=== PATIENT | female | born 1985 | race Caucasian/White ===

== ENCOUNTER 2024-06-06 10:23 | Outpatient (CLI) | payer OTHER ==
[2024-06-06 12:50] LABS: #Basophils 0.04 10x3/uL (0.0-0.2); %Basophils 0.5 % (0.0-1.0); %Eosinophils 1.7 % (0.0-10.0); %Lymphocytes 24.3 % (21.0-51.0); %Monocytes 7.4 % (0.0-10.0); %Neutrophils 65.5 % (42.0-75.0); Hematocrit 36.9 % (36.0-47.0); Hemoglobin 12.6 g/dL (12.0-16.0); Mean Corpuscular HGB CONC 34.1 g/dL (32.0-36.0); Mean Corpuscular Hemoglobin 30.1 pg (27.0-31.0); Mean Corpuscular Volume 88.3 fL (78.0-98.0); Mean Platelet Volume 9.2 fL (7.4-10.4); Platelet Count 186 10x3/uL (130-400); RBC Distribution Width 14.5 % (11.5-14.5); Red Blood Cell (RBC) Count 4.18 mill/uL (4.20-5.40)
[2024-06-06 13:17] LABS: Hemoglobin A1c 4.3 % (4.0-6.0)
[2024-06-06 13:21] LABS: ALT (SGPT) 42 U/L (8-55); AST (SGOT) 29 U/L (5-34); Alkaline Phosphatase 64 U/L (40-110); Anion Gap 11 mmol/L (10-20); BUN (Urea Nitrogen) 18 mg/dL (7.0-18.7); Bilirubin, Total 0.7 mg/dL (0.2-1.2); Calc. Creatinine Clearance 0 mL/min (70-130); Calcium 9.7 mg/dL (7.8-10.44); Carbon Dioxide 25 mmol/L (22-29); Chloride 107 mmol/L (98-107); Estimated GFR 83; Globulin 3.3 g/dL (2.4-3.5); Glucose 65 mg/dL (70-105); Potassium 4.1 mmol/L (3.5-5.1); Protein, Total 7.3 g/dL (6.0-8.3); Sodium 139 mmol/L (136-145)
== END 2024-06-06 10:24 | disposition home or self-care (01) ==
LOC: LABBT 10:23
PROVIDERS: ATTEND Surgery
DX: Z01.818 Encounter for other preprocedural examination (principal); E66.01 Morbid (severe) obesity due to excess calories
CPT/HCPCS: 80053; 83036; 85025; 93005; 93010

== ENCOUNTER 2024-06-13 06:17 | Observation (INO) | payer OTHER ==
[2024-06-06 10:37] VITALS: BMI 34.7
[2024-06-13] MEDS ORDERED: Sodium Chloride 0.9% 100 ML ONE (08:00)
[2024-06-13] MEDS ORDERED: CEFAZOLIN 2 GM VIAL ONE (08:00)
[2024-06-13] MEDS ORDERED: EPINEPHrine 1 MG/ML VIAL ONE (08:22)
[2024-06-13] MEDS ORDERED: Bupivacaine 0.25% HCL 30 ML VIAL ONE (08:22)
[2024-06-13] MEDS ORDERED: Heparin 5,000 UNITS/ML VIAL ONE (08:35)
[2024-06-13] MEDS ORDERED: PROPOFOL 20 ML ONE (08:46)
[2024-06-13] MEDS ORDERED: PROPOFOL 40 ML ONE (09:49)
[2024-06-13] MEDS ORDERED: fentaNYL PF 100 MCG/2 ML SYRINGE ONE (09:50)
[2024-06-13] MEDS ORDERED: Rocuronium Bromide 10 MG/ML (10ML VIAL) ONE (09:51)
[2024-06-13] MEDS ORDERED: Lidocaine 1% PF 5 ML VIAL ONE (09:51)
[2024-06-13] MEDS ORDERED: MINERAL OIL/WHITE PETROLATUM 3.5 GM TUBE ONE (10:25)
[2024-06-13] MEDS ORDERED: Dexamethasone 20 MG/5 ML VIAL ONE (10:25)
[2024-06-13] MEDS ORDERED: Promethazine HCl 25 MG/ML VIAL IM PRN ×2 (10:51→12:09)
[2024-06-13] MEDS ORDERED: Ondansetron HCl/PF 4 MG/2 ML Vial IVP PRN (10:51)
[2024-06-13] MEDS ORDERED: Ketorolac Tromethamine 30 MG (1 mL) VIAL ONE (10:57)
[2024-06-13] MEDS ORDERED: Ondansetron PF 4 MG/2 ML Vial ONE ×2 (10:57→11:48)
[2024-06-13] MEDS ORDERED: SUGAMMADEX SODIUM 200 MG/2 ML VIAL ONE (11:01)
[2024-06-13] MEDS ORDERED: fentaNYL 50 mcg/mL 1 mL Vial ONE ×3 (11:03→12:12)
[2024-06-13] MEDS ORDERED: traMADol HCl 50 MG TAB PO PRN (12:09)
[2024-06-13] MEDS ORDERED: oxyCODONE 5 MG TAB PO PRN (12:09)
[2024-06-13] MEDS ORDERED: hydrALAZINE 20 MG/ML VIAL SLOW IVP PRN (12:09)
[2024-06-13] MEDS ORDERED: Dextrose 50% Abboject 50 ML SYRINGE SLOW IVP PRN (12:09)
[2024-06-13] MEDS ORDERED: Ipratropium/Albuterol 3 ML NEB NEB PRN (12:09)
[2024-06-13] MEDS ORDERED: Glucagon 1 MG/ML KIT IM PRN (12:09)
[2024-06-13] MEDS ORDERED: diphenhydrAMINE 50 MG/ML VIAL IVP PRN (12:09)
[2024-06-13] MEDS ORDERED: Dextrose 5% in Water 1,000 ML IV PRN (12:09)
[2024-06-13] MEDS: fentaNYL 50 mcg/mL 1 mL Vial SLOW IVP PRN (15:44)
[2024-06-13] MEDS: Acetaminophen 650 MG/20.3 ML UDCUP PO SCH (15:45)
[2024-06-13] MEDS: D5 1/2 NS w/20 mEq KCL 1,000 ML IV SCH (17:38)
[2024-06-13] MEDS: Ondansetron PF 4 MG/2 ML Vial IVP PRN (22:11)
[2024-06-13] MEDS: Ketorolac Tromethamine 30 MG (1 mL) VIAL IVP PRN (22:11)
[2024-06-14 05:28] LABS: #Basophils Less than 0.03 10x3/uL (0.0-0.2); #Eosinophils Less than 0.03 10x3/uL (0.0-0.7); %Basophils 0.1 % (0.0-1.0); %Lymphocytes 14.6 % (21.0-51.0); %Monocytes 7.4 % (0.0-10.0); %Neutrophils 77.4 % (42.0-75.0); Hemoglobin 10.9 g/dL (12.0-16.0); Mean Corpuscular Hemoglobin 29.5 pg (27.0-31.0); Mean Corpuscular Volume 89.4 fL (78.0-98.0); Mean Platelet Volume 9.4 fL (7.4-10.4); Platelet Count 187 10x3/uL (130-400); RBC Distribution Width 14.3 % (11.5-14.5); Red Blood Cell (RBC) Count 3.69 mill/uL (4.20-5.40)
[2024-06-14 05:43] LABS: Anion Gap 11 mmol/L (10-20); BUN (Urea Nitrogen) 6 mg/dL (7.0-18.7); Calc. Creatinine Clearance 138 mL/min (70-130); Calcium 8.1 mg/dL (7.8-10.44); Carbon Dioxide 22 mmol/L (22-29); Chloride 113 mmol/L (98-107); Estimated GFR 93; Glucose 72 mg/dL (70-105); Potassium 4.1 mmol/L (3.5-5.1); Sodium 142 mmol/L (136-145)
[2024-06-14 08:34] VITALS: BP 101/66; TEMP 98.3
[2024-06-14] MEDS ORDERED: Non-Formulary Item 1 EACH (Desvenlafaxine [Desvenlafaxine Er] 100 MG Tab.Er.24h) PO SCH (09:00)
[2024-06-14] MEDS: Enoxaparin 40 MG (0.4 mL) SYRINGE SC SCH (09:20)
[2024-06-14] MEDS: Venlafaxine HCl XR 150 MG CAP PO SCH (09:20)
[2024-06-14] MEDS: Pantoprazole 40 MG VIAL IVP SCH (09:20)
== END 2024-06-14 10:35 | disposition home or self-care (01) ==
LOC: SDC 06:17 → EDSTATUS 10:00 → SURG B 12:09
PROVIDERS: ADMIT Surgery; ATTEND Surgery
PROC: 0DB60Z3 Excision of Stomach, Open Approach, Vertical (ICD-10-PCS; principal; 2024-06-14)
DX: E66.01 Morbid (severe) obesity due to excess calories (principal); E11.9 Type 2 diabetes mellitus without complications; F41.9 Anxiety disorder, unspecified; F32.A Depression, unspecified; F90.9 Attention-deficit hyperactivity disorder, unspecified type; E78.00 Pure hypercholesterolemia, unspecified; G43.909 Migraine, unspecified, not intractable, without status migrainosus; Z88.8 Allergy status to other drugs, medicaments and biological substances; Z68.35 Body mass index [BMI] 35.0-35.9, adult; Z79.899 Other long term (current) drug therapy
CPT/HCPCS: 36415; 36416; 80048; 85025; 88307; 94760; J0171; J0665; J1100; J1644; J1650; J1885; J2405; J2470; J2704; J3010; J3480

== ENCOUNTER 2024-06-16 10:34 | Day surgery (SDC) | payer OTHER ==
[2024-06-16] MEDS: Sodium Chloride 0.9% 1,000 ML IV SCH (10:45)
[2024-06-16 11:10] VITALS: BP 116/58; TEMP 98.3
[2024-06-16] MEDS ORDERED: Ondansetron PF 4 MG/2 ML Vial ONE (11:28)
[2024-06-16] MEDS: Multivitamins, Adult 10 ML, Thiamine HCl 100 MG in Sodium Chloride 0.9% 1,000 ML IV SCH (11:31)
[2024-06-16] MEDS: Ondansetron PF 4 MG/2 ML Vial IVP PRN (11:31)
== END 2024-06-16 16:50 | disposition home or self-care (01) ==
LOC: ONC/OP 10:34
PROVIDERS: ATTEND Surgery
DX: E86.0 Dehydration (principal); Z88.8 Allergy status to other drugs, medicaments and biological substances
CPT/HCPCS: 96360; 96366; 96375; J2405; J3411; J7030